=== PATIENT | male | born 1980 | race Caucasian/White ===

== ENCOUNTER 2022-08-28 09:47 | Emergency (ER) | payer MEDICAID ==
[~2022-08-28] VITALS: Ht 170.2 cm; Wt 69.9 kg
[2022-08-28 09:51] VITALS: BP 116/72
[2022-08-28] MEDS ORDERED: FLUORESCEIN OPTH STRIP 1 MG OP ONE ×2 (12:25→12:30)
[2022-08-28] MEDS ORDERED: FLUORESCEIN OPTH STRIP 1 MG ONE (12:26)
[2022-08-28] MEDS ORDERED: OFLOS RIGHT EYE (12:44)
--- NOTE | 2022-08-28 12:46 | NUR ---
DISCHARGED BY NATY FARAH. Patient discharged with v/s stable. Written and verbal after care instructions given. Patient alert, oriented and verbalized understanding of instructions. Ambulatory with steady gait. All questions addressed prior to discharge. ID band removed. Patient advised to follow up with PMD. Rx of OFLOXACIN given. Opportunity to ask questions provided and answered.
== END 2022-08-28 12:46 | disposition home or self-care (01) ==
LOC: MED 09:47
DX: T15.81XA Foreign body in other and multiple parts of external eye, right eye, initial encounter (principal); Z79.899 Other long term (current) drug therapy
CPT/HCPCS: 99283